=== PATIENT | female | born 1960 | race Caucasian/White ===

== ENCOUNTER 2018-04-02 11:49 | Inpatient (IN) | payer OTHER ==
[~2018-04-02] VITALS: Ht 175.3 cm; Wt 72.6 kg
[~2018-04-02 11:49] MED LIST: BEN50 PO; HYDR-3606 PO; HYDR-4100 PO; NOR10 PO; ONDA4TAB5 PO; TRIA15CR2 TP; [UNRECOGNIZED DRUG - CODE] SQ
[2018-04-02 11:55] VITALS: BP_SYST 157
[2018-04-02 12:59] LABS: CALCIUM 8.1 mg/dL (8.4-11.0); CREATININE 4.36 mg/dL (0.55-1.30); POTASSIUM 3.6 mmol/L (3.5-5.1)
[2018-04-02 13:02] LABS: PROTHROMBIN TIME 10.2 SECS (9.5-12.5)
[2018-04-02 13:04] LABS: ALBUMIN 3.1 g/dL (3.4-4.8); TOTAL BILIRUBIN 0.5 mg/dL (0.0-1.0)
[2018-04-02 13:13] LABS: BASOPHILS % (AUTO) 0.6 % (0.0-2.0); EOSINOPHILS # (AUTO) 0.1 K/uL (0.0-0.4); LYMPHOCYTES # (AUTO) 0.8 K/uL (1.0-5.5); MEAN CORPUSCULAR HGB CONC 34 % (32-36); MONOCYTES # (AUTO) 0.3 K/uL (0.0-1.0); NEUTROPHILS # (AUTO) 1.7 K/uL (1.8-7.7); WHITE BLOOD COUNT (AUTO) 2.9 K/uL (4.8-10.8)
[2018-04-02 13:17] LABS: EOSINOPHILS % (AUTO) 2.6 % (0.0-4.0); LYMPHOCYTES % (AUTO) 26.2 % (20.5-51.5); MEAN CORPUSCULAR HEMOGLOBIN 32 pg (27-31); MEAN CORPUSCULAR VOLUME 93 fL (79.0-98.0); MONOCYTES % (AUTO) 10.8 % (1.7-9.3); NEUTROPHILS % (AUTO) 59.8 % (40.0-70.0); PLATELET COUNT (AUTO) 148 K/uL (130-430); RED CELL DISTRIBUTION WIDTH 15.4 % (9.0-15.0)
[2018-04-02 13:19] LABS: RED BLOOD CELL COUNT(AUTO) 1.97 MIL/uL (4.2-6.2)
[2018-04-02 13:22] LABS: HEMATOCRIT 18.3 % (36-48); HEMOGLOBIN 6.2 g/dL (12.0-16.0)
[2018-04-02 15:01] VITALS: BP_SYST 145
[2018-04-02 15:45] VITALS: BP_SYST 162
[2018-04-02 16:00] VITALS: BP_SYST 151
[2018-04-02 19:15] VITALS: BP_SYST 185
[2018-04-02] MEDS ORDERED: amLODIPine BESYLATE 10 MG TABLET PO ONE (21:30)
[2018-04-02] MEDS: DIPHENHYDRAMINE HCL 50 MG CAPSULE PO SCH (21:41)
[2018-04-02] MEDS: HYDROcodone/ACETAMIN 10-325 MG TAB PO SCH (23:28)
[2018-04-02] MEDS ORDERED: DIPHENHYDRAMINE INJ 50 MG/ML VIAL IVP PRN (23:45)
[2018-04-02] MEDS ORDERED: DIPHENHYDRAMINE INJ 50 MG/ML VIAL IVP ONE (23:45)
[2018-04-03 00:15] VITALS: BP_SYST 142
[2018-04-03] MEDS: HYDROcodone/ACETAMIN 10-325 MG TAB PO SCH ×4 (05:53→23:27)
[2018-04-03] MEDS: ONDANSETRON 4 MG ODT TAB PO SCH ×5 (05:53→23:27)
[2018-04-03 07:42] LABS: BASOPHILS % (AUTO) 0.8 % (0.0-2.0); EOSINOPHILS # (AUTO) 0.1 K/uL (0.0-0.4); EOSINOPHILS % (AUTO) 3.7 % (0.0-4.0); LYMPHOCYTES # (AUTO) 0.8 K/uL (1.0-5.5); LYMPHOCYTES % (AUTO) 25.3 % (20.5-51.5); MEAN CORPUSCULAR HEMOGLOBIN 32 pg (27-31); MEAN CORPUSCULAR HGB CONC 34 % (32-36); MEAN CORPUSCULAR VOLUME 94 fL (79.0-98.0); MONOCYTES # (AUTO) 0.4 K/uL (0.0-1.0); MONOCYTES % (AUTO) 11.1 % (1.7-9.3); NEUTROPHILS # (AUTO) 1.9 K/uL (1.8-7.7); NEUTROPHILS % (AUTO) 59.1 % (40.0-70.0); PLATELET COUNT (AUTO) 142 K/uL (130-430); RED BLOOD CELL COUNT(AUTO) 2.06 MIL/uL (4.2-6.2); RED CELL DISTRIBUTION WIDTH 15.7 % (9.0-15.0); WHITE BLOOD COUNT (AUTO) 3.2 K/uL (4.8-10.8)
[2018-04-03 07:45] VITALS: BP_SYST 143
[2018-04-03 08:05] LABS: HEMATOCRIT 19.3 % (36-48); HEMOGLOBIN 6.6 g/dL (12.0-16.0)
[2018-04-03 08:13] LABS: CALCIUM 7.9 mg/dL (8.4-11.0); CREATININE 5.58 mg/dL (0.55-1.30); PHOSPHORUS 4.4 mg/dL (2.7-4.5); POTASSIUM 3.4 mmol/L (3.5-5.1)
[2018-04-03 08:58] LABS: TOTAL IRON BIND. CAPACITY 172 ug/dL (250-450)
[2018-04-03] MEDS ORDERED: HYDROcodone/ACETAMIN 5-325 MG TAB (NORCO/ VICODIN) PO SCH (09:00)
[2018-04-03] MEDS: amLODIPine BESYLATE 10 MG TABLET PO SCH (09:12)
[2018-04-03] MEDS: NEPHROVITE, (FOLIC ACID/VITAMIN B COMP W-C 1 TAB) PO SCH (09:12)
[2018-04-03 12:17] VITALS: BP_SYST 130
[2018-04-03] MEDS ORDERED: ACETAMINOPHEN 325 MG TABLET PO PRN (14:45)
[2018-04-03 16:15] VITALS: BP_SYST 138
[2018-04-03] MEDS ORDERED: EPOETIN ALFA 10,000 UNITS/ML VIAL SUBCUT SCH (17:00)
[2018-04-03 20:00] VITALS: BP_SYST 146
[2018-04-03] MEDS: DIPHENHYDRAMINE HCL 50 MG CAPSULE PO SCH (21:20)
[2018-04-04 00:42] VITALS: BP_SYST 140
[2018-04-04] MEDS: HYDROcodone/ACETAMIN 10-325 MG TAB PO SCH (05:42)
[2018-04-04] MEDS: ONDANSETRON 4 MG ODT TAB PO SCH (05:42)
[2018-04-04 06:57] LABS: CALCIUM 7.9 mg/dL (8.4-11.0); CREATININE 4.4 mg/dL (0.55-1.30); POTASSIUM 3.7 mmol/L (3.5-5.1)
[2018-04-04 07:15] LABS: BASOPHILS % (AUTO) 0.7 % (0.0-2.0); EOSINOPHILS # (AUTO) 0.1 K/uL (0.0-0.4); EOSINOPHILS % (AUTO) 4.7 % (0.0-4.0); HEMOGLOBIN 7.4 g/dL (12.0-16.0); LYMPHOCYTES # (AUTO) 1.1 K/uL (1.0-5.5); LYMPHOCYTES % (AUTO) 34.6 % (20.5-51.5); MEAN CORPUSCULAR HEMOGLOBIN 32 pg (27-31); MEAN CORPUSCULAR HGB CONC 34 % (32-36); MEAN CORPUSCULAR VOLUME 95 fL (79.0-98.0); MONOCYTES # (AUTO) 0.3 K/uL (0.0-1.0); MONOCYTES % (AUTO) 10.6 % (1.7-9.3); NEUTROPHILS # (AUTO) 1.6 K/uL (1.8-7.7); NEUTROPHILS % (AUTO) 49.4 % (40.0-70.0); PLATELET COUNT (AUTO) 158 K/uL (130-430); RED CELL DISTRIBUTION WIDTH 16.6 % (9.0-15.0); WHITE BLOOD COUNT (AUTO) 3.1 K/uL (4.8-10.8)
[2018-04-04 07:42] LABS: HEMATOCRIT 21.8 % (36-48)
[2018-04-04 08:00] VITALS: BP_SYST 145
[2018-04-04] MEDS: NEPHROVITE, (FOLIC ACID/VITAMIN B COMP W-C 1 TAB) PO SCH (09:32)
[2018-04-04] MEDS: amLODIPine BESYLATE 10 MG TABLET PO SCH (09:33)
[2018-04-04 09:54] VITALS: BP_SYST 145
== END 2018-04-04 10:20 | disposition home health service (06) | DRG 811 ==
LOC: SED 11:49 → SMU 14:22
PROVIDERS: ADMIT Family Medicine; ATTEND Family Medicine
PROC: 30233N1 Transfusion of Nonautologous Red Blood Cells into Peripheral Vein, Percutaneous Approach (ICD-10-PCS; principal; 2018-04-02)
PROC: 5A1D70Z Performance of Urinary Filtration, Intermittent, Less than 6 Hours Per Day (ICD-10-PCS; 2018-04-02)
DX: D64.9 Anemia, unspecified (principal); N18.6 End stage renal disease; E44.1 Mild protein-calorie malnutrition; I12.0 Hypertensive chronic kidney disease with stage 5 chronic kidney disease or end stage renal disease; D72.819 Decreased white blood cell count, unspecified; N28.1 Cyst of kidney, acquired; Z88.0 Allergy status to penicillin; Z88.6 Allergy status to analgesic agent; Z91.018 Allergy to other foods; Z79.899 Other long term (current) drug therapy; Z90.49 Acquired absence of other specified parts of digestive tract; Z91.048 Other nonmedicinal substance allergy status; Z99.2 Dependence on renal dialysis; Z68.23 Body mass index [BMI] 23.0-23.9, adult
CPT/HCPCS: 36415; 71045; 80048; 80053; 82550-TC; 83540-TC; 83550-TC; 83880; 84100-TC; 84484; 85025; 85610-TC; 85730-TC; 86886; 86900; 86901; 86920; 87081; 90935; 93005; 99285; J0885; J1200; J7030; J7050; P9021; Q0162; Q0163